=== PATIENT | male | born 1955 | race Caucasian/White ===

== ENCOUNTER 2023-08-09 08:10 | Emergency (ER) | payer MEDICARE, SELFPAY ==
[2023-08-09 08:25] VITALS: BP 134/78; PULSE 98; RESP 16; TEMP 36.7; O2SAT 97
--- NOTE | 2023-08-09 08:26 | ECG_ITS ---
Measurements Intervals [place] Rate: 108 P: [place]: 0 QRS: 25 QRSD: 133 T: 24 QT: 333 QTc: 446 Interpretive Statements PROBABLE ATRIAL FLUTTER WITH RAPID VENTRICULAR RESPONSE AND VARIABLE AV BLOCK RIGHT BUNDLE BRANCH BLOCK [120+ ms QRS DURATION, UPRIGHT V1, 40+ ms S IN I/aVL/V4/V5/V6] ABNORMAL ECG NO PREVIOUS ECG AVAILABLE FOR COMPARISON Electronically Signed On 08-09-2023 13:48:37 CDT by Vishal Arriaza M.D.
--- NOTE | 2023-08-09 08:28 | ED.GENADULT ---
HPI - General Adult General Chief complaint: Chest Pain Stated complaint: Chest pain Time Seen by Provider: 08/09/23 08:28 Source: patient and RN notes reviewed Mode of arrival: ambulatory Limitations: no limitations History of Present Illness HPI narrative: 67-year-old male presents to the [facility] with complaints of chest pain that started last night. Reports it being sternal the left-sided. States he thought it was just acid reflux after eating brisk it last night. Pain continued this morning at thought it was hunger pain so he went to the [employer] for breakfast. Comes to the [facility] with increase of pain, nausea, and states it is not getting any better. Patient has a history of hypertension, insomnia, acid reflux, prostate issues, diabetes, high cholesterol. Spoke with daughter, Yvonne, via phone, she states that he has no history of AFib. On arrival and monitor heart rate 110-140. Onset (ago): hour(s) (12-15) Related Data Home Medications Medication Instructions Recorded Confirmed atorvastatin 20 mg tablet 20 mg PO DAILY 08/09/23 08/09/23 clonidine 0.1 mg/24 hr weekly 0.1 mg transdermal WEEKLY 08/09/23 08/09/23 transdermal patch glipizide 10 mg tablet 10 mg PO DAILY 08/09/23 08/09/23 insulin glargine 100 unit/mL (3 See Rx Instructions .Route .COMPLEX 08/09/23 08/09/23 mL) subcutaneous pen (Lantus Solostar U-100 Insulin) linagliptin 5 mg tablet (Tradjenta) 5 mg PO DAILY 08/09/23 08/09/23 metoprolol tartrate 100 mg tablet 100 mg PO DAILY 08/09/23 08/09/23 omeprazole 40 mg capsule,delayed 40 mg PO DAILY 08/09/23 08/09/23 release spironolactone 25 mg tablet 25 mg PO DAILY 08/09/23 08/09/23 tamsulosin 0.4 mg capsule 0.4 mg PO DAILY 08/09/23 08/09/23 trazodone 100 mg tablet 100 mg PO DAILY 08/09/23 08/09/23 valsartan 320 1 tablet PO DAILY 08/09/23 08/09/23 mg-hydrochlorothiazide 25 mg tablet zolpidem 10 mg tablet 10 mg PO DAILY 08/09/23 08/09/23 Allergies Allergy/AdvReac Type Severity Reaction Status Date / Time No Known Allergies Allergy Verified 08/09/23 08:48 Review of Systems Review of Systems: All systems reviewed & are unremarkable except as noted in HPI and below Constitutional: Constitutional: Reports no additional constitutional complaints Eyes: Eyes: Reports no additional eye complaints ENT: Reports system reviewed and no additional complaints, except as documented Cardiovascular: Cardiovascular: Reports as per HPI, Reports chest pain, Reports chest pain at rest, Reports chest pain with activity, Denies diaphoresis, Reports rapid heart rate, Denies pedal edema, Denies leg edema and Denies dyspnea Respiratory: Respiratory: Reports no additional respiratory complaints, Denies chest congestion, Denies cough and Denies dyspnea Gastrointestinal: Gastrointestinal: Reports no additional gastrointestinal complaints, Denies abdominal pain, Reports nausea and Denies vomiting Musculoskeletal: Musculoskeletal: Reports no additional musculoskeletal complaints Integumentary/Breasts: Skin/Breast: Reports system reviewed and no additional complaints, except as docu Neurologic: Reports system reviewed and no additional complaints, except as documented Psychiatric: Psychiatric: Reports no additional psychiatric complaints Allergic/Immunologic: Allergic/Immunologic: Reports no additional allergic/immunologic complaints [facility] Past Medical History Medical History (Updated 08/09/23 @ 08:58 by Yvonne Laguna APRN) Diabetes Enlarged prostate H/O gastroesophageal reflux (GERD) High cholesterol History of high blood pressure Insomnia Social History Social History (Updated 08/09/23 @ 08:53 by Yvonne Laguna APRN) Gender identity (if verbalized by the patient): Male Comments At the time of my signature, I reviewed and agree with the nursing past medical, surgical, social, and family history. There is no relevant family history pertinent to the patient complaint. Exam Const: Gener
[2023-08-09] MEDS: ASPIRIN 81 MG CHEWABLE TABLET 324 MG PO (08:42)
== END 2023-08-09 08:38 | disposition short-term general hospital (02) ==
PROVIDERS: Emergency Provider Nurse Practitioner
DX: I48.91 Unspecified atrial fibrillation (principal); I45.10 Unspecified right bundle-branch block; I10 Essential (primary) hypertension; E11.9 Type 2 diabetes mellitus without complications; E78.00 Pure hypercholesterolemia, unspecified; N40.0 Benign prostatic hyperplasia without lower urinary tract symptoms; K21.9 Gastro-esophageal reflux disease without esophagitis
CPT/HCPCS: 93005; 99215; A9270; G0463

== ENCOUNTER 2023-08-09 09:11 | Inpatient (IN) | payer MEDICARE, SELFPAY ==
[2023-08-09] VITALS (13 sets, daily range): BP systolic 126–167; BP diastolic 62–112; PULSE 80–134; RESP 18–29; TEMP 36.7–38.1; O2SAT 95–100
--- NOTE | ~2023-08-09 | NM_ITS ---
EXAMINATION: NM janice stress w perfusion DATE: 08/10/2023 13:31 INDICATION: Chest pain. TECHNIQUE: Rest images were obtained following intravenous administration of 11 mCi Tc99m tetrofosmin (Myoview). The patient was infused intravenously with Lexiscan (regadenoson). Then, 31.8 mCi Tc99m t etrofosmin (Myoview) was administered intravenously, and stress images were obtained. Data was recons tructed into short axis and horizontal and vertical long axis SPECT images. Gated SPECT images were a lso obtained. COMPARISON: Chest CT 08/09/2023 FINDINGS: There is no definite reversible or fixed perfusion abnormality to suggest ischemia or infar ction. There is no segmental wall motion abnormality. Left ventricular ejection fraction measures > 70%. IMPRESSION: 1. No definite ischemia or infarct. 2. Normal left ventricular ejection fraction measuring > 70%. Reviewed, dictated and finalized at location E.
--- NOTE | ~2023-08-09 | XR_ITS ---
XR chest 1V portable DATE: 08/09/2023 10:19 INDICATION: Chest pain TECHNIQUE: Portable upright AP chest on 08/09/2023 at 1016 hours COMPARISON: None FINDINGS: Cardiomegaly. No pulmonary infiltrate or consolidation, pleural effusion, pulmonary vascula r congestion or pneumothorax is detected. Degenerative spurring of the thoracic spine. IMPRESSION: Cardiomegaly No active pulmonary disease Reviewed, dictated and finalized at location A.
--- NOTE | ~2023-08-09 | US_ITS ---
EXAMINATION: US renal BI DATE: 08/11/2023 10:16 INDICATION: Acute kidney injury. TECHNIQUE: Multiple ultrasound grayscale images of the kidneys were obtained. COMPARISON: CT abdomen and pelvis 08/09/2023 FINDINGS: The right kidney measures 13.9 x 5.4 x 7.8 cm. The left kidney measures 12.3 x 6.9 x 6.2 cm. The kidn eys demonstrate normal parenchymal echogenicity. There is no hydronephrosis. The bladder is normal. T here is diffuse hepatic steatosis. IMPRESSION: 1. Normal kidneys. No hydronephrosis. 2. Diffuse hepatic steatosis. Reviewed, dictated and finalized at location E.
--- NOTE | ~2023-08-09 | US_ITS ---
US abdomen limited DATE: 08/09/2023 13:23 INDICATION: Right upper quadrant abdominal pain, tenderness, elevated bilirubin TECHNIQUE: Real-time imaging and Doppler analysis COMPARISON: 08/09/2023 CTA chest abdomen pelvis FINDINGS: There is diffuse hepatic steatosis. No hepatic or pancreatic space-occupying mass lesion is detected. Normal hepatopedal portal venous flow direction. The common bile duct measures 4.5 mm, normal. No gallstones or gallbladder wall thickening or abnormal pericholecystic fluid collection. IMPRESSION: Hepatic steatosis Reviewed, dictated and finalized at Location A. Reviewed, dictated and finalized at location A. IMPRESSION: Hepatic steatosis
--- NOTE | ~2023-08-09 | CT_ITS ---
EXAMINATION: CTA chest PE abdomen pel DATE: 08/09/2023 10:38 INDICATION: Chest pain, right upper quadrant and epigastric abdominal pain TECHNIQUE: Computed tomography angiography (CTA) of the chest, abdomen and pelvis was performed with 200 mL Omnipaque-350 intravenous contrast timed to evaluate the pulmonary arteries. Coronal maximum i ntensity projection 3D-reconstructions were created by the technologist. Automated exposure control a nd iterative reconstruction technique were employed. Exam dose: 3350.64 mGy-cm total exam DLP. COMPARISON: 08/09/2023 portable AP chest 08/09/2023 and limited ultrasound examination is not available at this time FINDINGS: No central pulmonary embolism is evident. Evaluation of the peripheral pulmonary arteries i s limited due to motion. Cardiomegaly. No thoracic aortic aneurysm or dissection. No hilar or mediastinal mass lesion or lymphadenopathy. No pericardial or pleural effusion. No pulmonary infiltrate or consolidation or pulmonary mass lesion is evident. Small sliding hiatal hernia. Diffuse hepatic steatosis. No hepatic, splenic, pancreatic or significant adrenal space-occupying mas s lesion. The gallbladder is present. No gallbladder wall thickening or pericholecystic fluid or fat stranding. No bile duct or pancreatic duct dilatation. No renal mass lesion or urinary tract calculus or hydroureteronephrosis. There is prostatomegaly with prominent diffuse urinary bladder wall thickening. Bilateral vas deferen s calcifications are noted, usually associated with diabetes. Normal caliber of the abdominal aorta. No intraperitoneal or retroperitoneal or pelvic mass lesion or adenopathy or ascites is detected. No bowel obstruction or intraperitoneal free air. Normal appendix. Bilateral fat-containing inguinal hernias. Prominent degenerative disc disease in the lower cervical spine. Diffuse idiopathic skeletal hyperostosis of the thoracic spine. Prominent degenerative change at the lumbar apophyseal joints with associated grade 1 anterolisthesis at L4-5. Moderate degenerative disc disease of the lumbar spine. IMPRESSION: No thoracic or abdominal aortic aneurysm or dissection Cardiomegaly Small sliding hiatal hernia Hepatic steatosis Prostatomegaly Vas deferens calcifications, usually associated with diabetes Normal appendix Bilateral fat-containing inguinal hernias Reviewed, dictated and finalized at Location A. Reviewed, dictated and finalized at location A.
--- NOTE | 2023-08-09 09:13 | ECG_ITS ---
Measurements Intervals [place] Rate: 115 P: [place]: 0 QRS: 23 QRSD: 135 T: 17 QT: 324 QTc: 449 Interpretive Statements ATRIAL FLUTTER WITH RAPID VENTRICULAR RESPONSE AND VARIABLE AV BLOCK RIGHT BUNDLE BRANCH BLOCK [120+ ms QRS DURATION, UPRIGHT V1, 40+ ms S IN I/aVL/V4/V5/V6] ABNORMAL ECG COMPARED TO ECG 08/09/2023 08:36:06 NO SIGNIFICANT CHANGES Electronically Signed On 08-09-2023 13:49:21 CDT by Vishal Arriaza M.D.
[2023-08-09 09:34] LABS: Basophils Percent Auto 0.3 % (0.2-1.2); Eosinophils Absolute Auto 0.1 K/mm3 (0-0.3); Eosinophils Percent Auto 0.5 % (0-4.4); Hematocrit 43.1 % (42.0-52.0); Hemoglobin 14.6 g/dL (14.0-18.0); Immature Granulocyte Absolute 0.04 K/mm3 (0.00-0.031); Immature Granulocyte Percent A 0.4 % (0-0.5); Lymphocytes Absolute Auto 0.62 K/mm3 (0.9-3.2); Lymphocytes Percent Auto 6.3 % (18.3-44.2); Mean Corpuscular HGB Conc 33.9 g/dl (32-36); Mean Corpuscular Hemoglobin 29.4 pg (26-34); Mean Corpuscular Volume 86.9 fl (80-100); Mean Platelet Volume 9.1 fl (7.4-10.4); Monocytes Absolute Auto 0.8 K/mm3 (0.1-0.6); Monocytes Percent Auto 7.8 % (2.6-8.5); Neutrophils Absolute Auto 8.3 K/mm3 (1.3-6.7); Neutrophils Percent Auto 84.7 % (45.5-73.1); Platelet Count Result 170 k/mm3 (150-375); Red Blood Count 4.96 M/mm3 (4.6-6.20); Red Cell Distribution Width 13.3 % (11.5-14.5); White Blood Count 9.9 K/mm3 (4.5-10.0)
--- NOTE | 2023-08-09 09:37 | ED.CHESTPAIN ---
HPI - Chest Pain General Chief Complaint: Chest Pain <Rina Nichole PA-C - Last Filed: 08/09/23 15:01> Stated Complaint: CP/ AFIB <Rina Nichole PA-C - Last Filed: 08/09/23 15:01> History of Present Illness HPI narrative: 67-year-old male with a history of insulin-dependent diabetes, GERD, hyperlipidemia, hypertension reports for evaluation for sudden onset substernal chest pain that started around 1 to 2 AM this morning. Patient states the pain woke him up out of his sleep and he thought he was hungry. He states the pain persisted and while he was at [facility] this morning which prompted him to go to urgent care. He was found to be in new onset A-fib RVR and was sent to the emergency department. The patient states the chest pain resolved while he was at the urgent care. Upon my evaluation, he stated he is no longer having chest pain. He denies aggravating or alleviating factors. Denies palpitations, syncope, vision changes, focal numbness or weakness, lightheadedness, dyspnea, cough or congestion, fever, abdominal pain, nausea, vomiting, diarrhea. Patient states his blood glucose is normally in the 100s to 200s. <Rina Nichole PA-C - Last Filed: 08/09/23 15:01> Related Data Home Medications: Home Medications Medication Instructions Recorded Confirmed aspirin 81 mg capsule 81 mg PO HS 08/09/23 08/09/23 atorvastatin 20 mg tablet 20 mg PO HS 08/09/23 08/09/23 clonidine 0.1 mg/24 hr weekly 0.1 mg transdermal WEEKLY 08/09/23 08/09/23 transdermal patch glipizide 10 mg tablet 10 mg PO Q12H 08/09/23 08/09/23 insulin glargine 100 unit/mL (3 20 unit subcut DAILY 08/09/23 08/09/23 mL) subcutaneous pen (Lantus Solostar U-100 Insulin) linagliptin 5 mg tablet (Tradjenta) 5 mg PO DAILY 08/09/23 08/09/23 metoprolol tartrate 100 mg tablet 100 mg PO Q12H 08/09/23 08/09/23 omeprazole 40 mg capsule,delayed 40 mg PO DAILY 08/09/23 08/09/23 release spironolactone 25 mg tablet 25 mg PO Q12H 08/09/23 08/09/23 tamsulosin 0.4 mg capsule 0.4 mg PO DAILY 08/09/23 08/09/23 trazodone 100 mg tablet 150 mg PO HS 08/09/23 08/09/23 valsartan 320 1 tablet PO DAILY 08/09/23 08/09/23 mg-hydrochlorothiazide 25 mg tablet zolpidem 10 mg tablet 10 mg PO HS 08/09/23 08/09/23 <Rina Nichole PA-C - Last Filed: 08/09/23 15:01> Allergies/Adverse Reactions: Allergies Allergy/AdvReac Type Severity Reaction Status Date / Time No Known Allergies Allergy Verified 08/09/23 08:48 <Rina Nichole PA-C - Last Filed: 08/09/23 15:01> Review of Systems Review of Systems: CONSTITUTIONAL: Denies fever, chills EYES: Denies visual changes, redness, or discharge. ENT: Denies rhinorrhea, congestion, sore throat, or otalgia. CARDIOVASCULAR: See HPI RESPIRATORY: Denies cough or dyspnea. GASTROINTESTINAL: Denies abdominal pain, nausea, vomiting, or diarrhea. GENITOURINARY: Denies dysuria or hematuria. SKIN: Denies rash or itching. MUSCULOSKELETAL: Denies back pain, joint pain, or myalgia. NEUROLOGIC: Denies headache, numbness, dizziness, or weakness. PSYCHIATRIC: Denies anxiety or depression. <Rina Nichole PA-C - Last Filed: 08/09/23 15:01> [facility] Past Medical History Medical History: Medical History Diabetes Enlarged prostate H/O gastroesophageal reflux (GERD) High cholesterol History of high blood pressure Insomnia <Rina Nichole PA-C - Last Filed: 08/09/23 15:01> Family History Family History: Family History (Updated 08/09/23 @ 18:50 by Blanca Don RN) Father Colon cancer <Rina Nichole PA-C - Last Filed: 08/09/23 15:01> Social History Social History: Social History Smoking status: Former smoker Tobacco type: cigars Alcohol intake: never Substance use: never Substance use type: does not use Lack of Transportation: No Lack
[2023-08-09 09:38] LABS: INR 1.1; Prothrombin Time 14.2 Seconds (11.1-14.7)
[2023-08-09 09:39] LABS: Partial Thromboplastin Time 31.2 SECONDS (22.3-36.8)
[2023-08-09] MEDS: dilTIAZem HCl INJ 25 MG/5 ML VIAL 10 MG IV PUSH (09:42)
[2023-08-09 09:56] LABS: Appearance Urine Clear (Clear); Bacteria Urine None Seen /hpf; Bilirubin Urine Negative (Negative); Blood Urine Trace (Negative); Color Urine Yellow (Yellow); Glucose Urine UA 3+ mg/dL (Negative); Ketones Urine Trace mg/dL (Negative); Leukocyte Esterase Ur Negative LEU/UL (Negative); Nitrate Urine Negative (Negative); Non Pathogenic Casts 0-2; Protein Urine 3+ mg/dL (Negative); RBC Urine 0-2 /hpf (0-2); Specific Grav Ur 1.022 (1.001-1.035); Squamous Epithelial Cell Urine None seen /hpf (Few); WBC Urine 0-5 /hpf; pH Urine 5.5 (5.0-9.0)
[2023-08-09 09:56] LABS: Alanine Aminotransferase 95 U/L (6-50); Albumin Level 4.5 g/dL (3.5-5.1); Alkaline Phosphatase 104 U/L (38-126); Anion Gap 13 mmol/L (8-16); Aspartate Amino Transferase 169 U/L (17-59); Bilirubin,Total 3.2 mg/dL (0.2-1.3); Blood Urea Nitrogen 24 mg/dL (9-20); Calcium 9.6 mg/dL (8.4-10.2); Carbon Dioxide 22 mmol/L (22-30); Chloride 96 mmol/L (98-107); Estimated Glomerular Filt Rate 47; Glucose 324 mg/dL (65-110); Lipase 348 U/L (23-300); Potassium 4.2 mmol/L (3.4-5.0); Sodium 131 mmol/L (137-145)
[2023-08-09 10:02] LABS: Add Urine Microscopic? YES
[2023-08-09] MEDS: ALBUTEROL SULFATE NEB 2.5 MG/3 ML INH INHALATION (10:04)
[2023-08-09] MEDS: IPRATROPIUM BR 0.02% INH SOLN 0.5 MG/2.5 ML VIAL INHALATION (10:04)
[2023-08-09 10:05] LABS: Magnesium 1.6 mg/dL (1.6-2.3)
[2023-08-09 10:07] LABS: Troponin I < 0.012 ng/mL (0.000-0.034)
[2023-08-09 10:15] LABS: NT Pro B Type Natriuretic Pept 2570 pg/mL (19.9-100)
[2023-08-09] MEDS: dilTIAZem 100 MG/100 ML 100 MG/100 ML BAG IV CONT (10:40)
[2023-08-09] MEDS: ONDANSETRON INJ 4 MG/2 ML VIAL IV PUSH (10:41)
--- NOTE | 2023-08-09 12:06 | ECG_ITS ---
Measurements Intervals [place] Rate: 99 P: 44 [place]: 204 QRS: 10 QRSD: 134 T: 31 QT: 319 QTc: 410 Interpretive Statements PROBABLE ATRIAL FLUTTER WITH VARIABLE AV BLOCK MARKED BASELINE ARTIFACT RIGHT BUNDLE BRANCH BLOCK [120+ ms QRS DURATION, UPRIGHT V1, 40+ ms S IN I/aVL/V4/V5/V6] ABNORMAL ECG COMPARED TO ECG 08/09/2023 09:15:07 SINUS RHYTHM NOW PRESENT Electronically Signed On 08-09-2023 13:50:01 CDT by Vishal Arriaza M.D.
--- NOTE | 2023-08-09 12:11 | ECG_ITS ---
Measurements Intervals [place] Rate: 94 P: 25 [place]: 198 QRS: -2 QRSD: 130 T: 13 QT: 336 QTc: 421 Interpretive Statements SINUS RHYTHM RIGHT BUNDLE BRANCH BLOCK [120+ ms QRS DURATION, UPRIGHT V1, 40+ ms S IN I/aVL/V4/V5/V6] ABNORMAL ECG COMPARED TO ECG 08/09/2023 09:52:38 SINUS RHYTHM NOW PRESENT Electronically Signed On 08-10-2023 12:13:39 CDT by Tomas Pizano M.D.
[2023-08-09 12:13] LABS: Troponin I < 0.012 ng/mL (0.000-0.034)
[2023-08-09] MEDS: ENOXAPARIN 100 MG/ML SYRINGE SUB-Q (12:36)
[2023-08-09] MEDS: SODIUM CHLORIDE 0.9% IV 1,000 ML 999 ML IV CONT (12:36)
[2023-08-09 15:43] LABS: Glucose Point of Care 308 mg/dl (65-105)
[2023-08-09 15:47] LABS: Troponin I 0.017 ng/mL (0.000-0.034)
--- NOTE | 2023-08-09 15:47 | PM.IMHP ---
H&P: HPI History of Present Illness Date/Time: 08/09/23 14:45 Chief Complaint: Chest pain and rapid heart rate. Narrative: This is a 67-year-old male with insulin dependent type 2 diabetes mellitus, hypertension, hyperlipidemia, obstructive sleep apnea intolerant to CPAP, gastroesophageal reflux disease, benign prostatic hyperplasia, and insomnia who presented to the emergency department from urgent care for evaluation of chest pain and rapid heart rate. The patient provides the following history. He is from [place] however has been in the area for quite some time for work on the [employer]. He has been in his usual state of health as of late. At about 01:00 he was awakened from sleep with a pressure-like sensation in the substernal region which he initially attributed to indigestion or hunger. He was not able to sleep much through the rest of the night due to the pressure. This morning it was still there when he got up for the day and he went to urgent care. There he was found to be in a rapid atrial tachycardia and he was sent to the ED. His chest discomfort resolved by the time he arrived here. Initial EKG showed atrial flutter with rapid ventricular response and he was started on a diltiazem drip with improvement in his rates. Labs were significant for a sodium of 131, chloride 96, BUN 24, creatinine 1.50, glucose 324, total bilirubin 3.2, AST 169, ALT 95, creatinine kinase 284, proBNP 2570, lipase 348, troponin less than 0.012. He denies sensations of racing heart and palpitations. He denies feelings of shortness of breath however he does appear to get winded when walking back from the bathroom and crawling back up onto the gurney. He denies syncope, near syncope, exertional chest pain, cough, paroxysmal nocturnal dyspnea, edema, calf pain, nausea, vomiting, and sweats. He has no known history of cardiac dysrhythmia or cardiac disease. He denies significant alcohol and caffeine use. No history of thyroid disease or venous thromboembolism. He denies illicit substance use. Review of Systems Review of Systems: Twelve systems were reviewed. No recent cold or flu symptoms. He denies sick contacts. He has fallen out of favor of using his CPAP as it tends to keep him awake at night. He does have pretty significant insomnia. Reports glucose is typically in the 100 or 200s. No blurry vision, polydipsia, or polyuria. Except as documented, all other systems were reviewed and are negative. [facility] Past Medical History Medical History (Updated 08/09/23 @ 21:48 by Margo Nagel PA-C) Benign prostatic hyperplasia Gastroesophageal reflux disease Hyperlipidemia Hypertension Insomnia Insulin dependent type 2 diabetes mellitus Obstructive sleep apnea Intolerant to CPAP. Surgical History Surgical History (Updated 08/09/23 @ 21:44 by Margo Nagel PA-C) History of colonoscopy with polypectomy History of repair of left rotator cuff History of tonsillectomy Family History Family History Father Colon cancer Social History Social History (Updated 08/09/23 @ 21:45 by Margo Nagel PA-C) Social History: Surrogate medical decision maker: Malorie Emmanuel () or Yvonne Yusuf (daughter). Code status: Do not resuscitate. Smoking status: Former smoker Tobacco type: cigars Alcohol intake: current Alcohol use details: Social alcohol use in moderation. Substance use: never Substance use type: does not use Lack of Transportation: No Lack of Food: Never True Current Housing: I Have Housing Concerned About Future Housing: No Difficulty Paying Gas/Electric Bills: No Difficulty Paying for Meds: No Currently Unemployed: No Education: Don't Know Difficulty w/ Childcare or Family Care: No Additional living arrangements comments: The patient lives in [place] and is here for work. Spiritual care concerns: No Meds Home Medications and Allergies Home Medica
--- NOTE | 2023-08-09 17:06 | PC.NURSE ---
pt is A&Ox4. Pt ST with occasionl PVC. Denies SOB and chest pain.
--- NOTE | 2023-08-09 18:32 | ADMGEN ---
This patient, Shahab Emmanuel, was admitted to IMU Room 201-01 on 08/09/23 at 1755. Patient/family oriented to hospital policies and general routines including ID bracelet, bed and alarms, visiting hours, pain management, procedures, bathroom and other care routines, personal items, smoking policy, room service/diet, and visiting hours. Information on how to activate the Rapid Response Team has been discussed. Patient/Family are encouraged to report perceived risks to care and to ask questions if they do not understand what they are told or what they should do.
[2023-08-09 19:09] LABS: Creatine Kinase 284 U/L (55-170)
[2023-08-09 19:11] LABS: Hemoglobin A1C 9.4 % (<5.7)
[2023-08-09 19:12] LABS: Lactic Acid Reflex 2.6 mmol/L (0.7-2.0)
[2023-08-09 19:21] LABS: Troponin I 0.021 ng/mL (0.000-0.034)
[2023-08-09 19:41] LABS: Thyroid Stimulating Hormone Reflex 0.684 uIU/mL (0.465-4.68)
[2023-08-09 20:29] LABS: Hepatitis B Surface Antigen Negative (Negative)
[2023-08-09 20:34] LABS: HAV RESULT Negative (Negative); Hepatitis B Core IgM Result Negative (Negative)
[2023-08-09 20:46] LABS: Hepatitis C Virus Antibody Negative (Negative)
[2023-08-09 21:11] LABS: Glucose Point of Care 253 mg/dl (65-105)
[2023-08-09] MEDS: ZOLPIDEM TARTRATE (*CRX) 5 MG TABLET 10 MG PO (21:24)
[2023-08-09] MEDS: METOPROLOL TARTRATE 50 MG TAB 100 MG PO (21:25)
[2023-08-09] MEDS: traZODone HCL 50 MG TABLET 150 MG PO (21:25)
[2023-08-09] MEDS: SPIRONOLACTONE 25 MG TABLET PO (21:25)
[2023-08-09] MEDS: ATORVASTATIN 20 MG TABLET PO (21:25)
[2023-08-09] MEDS: glipiZIDE 5 MG TABLET 10 MG PO (21:30)
[2023-08-09 21:53] LABS: Reflex Lactic Acid Yes or No Add Lactic
[2023-08-09 22:47] LABS: Lactic Acid 2.6 mmol/L (0.7-2.0)
[2023-08-10] VITALS (15 sets, daily range): BP systolic 112–157; BP diastolic 47–82; PULSE 76–99; RESP 14–22; TEMP 36.4–37.5; O2SAT 91–97
--- NOTE | 2023-08-10 | ECHO_ITS ---
Patient Info Name: Shahab Emmanuel Age: 67 years : 1955 Gender: Male Ht: 72 in Wt: 220 lbs BSA: 2.27 m2 HR: 86 bpm BP: 112 / 47 mmHg Heart Rhythm: Sinus Rhythm Technical Quality: Good Exam Date: 08/10/2023 8:41 AM Exam Location: [facility] Patient Status: Inpatient Admit Date: 08/10/2023 Staff Ordering Physician: Margo Nagel PA-C Diver Tender: Kathi Perez RDCS Attending Provider: Jacinta Ayers MD Referring Physician: Shona VERMA; Exam Type: CA echo doppler color flow Study Info Indications - aflutter, htn, hyperlipidemia Complete two-dimensional, color flow and Doppler transthoracic echocardiogram is performed. Summary 1. Complete two-dimensional, color flow and Doppler transthoracic echocardiogram is performed. 2. Left ventricular chamber dimension is normal. 3. Left ventricular systolic function is normal, estimated at 60-65%. 4. There is mildly increased left ventricular wall thickness. 5. The left ventricular diastolic function is grade I diastolic dysfunction. 6. Left atrial chamber dimension is mildly enlarged. 7. There is mild mitral valve regurgitation. 8. There is mild tricuspid valve regurgitation. 9. Mild pulmonary hypertension, estimated pulmonary arterial systolic pressure is 41 mmHg. Left Ventricle Left ventricular chamber dimension is normal. Left ventricular systolic function is normal, estimated at 60-65%. There is mildly increased left ventricular wall thickness. The left ventricular diastolic function is grade I diastolic dysfunction. Right Ventricle Right ventricular chamber dimension is normal. Right ventricular systolic function is normal. Left Atria Left atrial chamber dimension is mildly enlarged. Right Atria Right atrial chamber dimension is normal. Atrial Septum Intact interatrial septum visualized by color flow imaging. Aortic Valve The aortic valve is trileaflet. There is mild aortic valve sclerosis. There is no aortic valve stenosis. There is trace aortic valve regurgitation. Pulmonic Valve The pulmonic valve is normal. There is no pulmonic valve stenosis. There is trace pulmonic regurgitation. Mitral Valve The mitral valve has normal leaflets. There is no mitral valve stenosis. There is mild mitral valve regurgitation. Tricuspid Valve The tricuspid valve leaflets are normal. There is no significant tricuspid valve stenosis. There is mild tricuspid valve regurgitation. Mild pulmonary hypertension, estimated pulmonary arterial systolic pressure is 41 mmHg. Pericardium/Pleural The pericardium appears normal. There is no pericardial effusion. Inferior Vena Cava Normal inferior vena cava with >50% collapse upon inspiration consistent with normal right atrial pressure, 10 mmHg. Aorta The aortic root size at the sinus of Valsalva is normal. The prox ascending aorta size is normal. Left Ventricular Outflow Tract Name Value Normal LVOT 2D LVOT Diameter 2.0 cm LVOT Doppler LVOT Peak Gradient 4 mmHg LVOT Mean Gradient 3 mmHg LVOT VTI 19 cm LVOT VTI/AV VTI Ratio 0.6 LVOT
[2023-08-10 01:01] LABS: Glucose Point of Care 209 mg/dl (65-105)
[2023-08-10 04:17] LABS: Hematocrit 36.1 % (42.0-52.0); Hemoglobin 12.3 g/dL (14.0-18.0); Mean Corpuscular HGB Conc 34.1 g/dl (32-36); Mean Corpuscular Hemoglobin 29.6 pg (26-34); Mean Platelet Volume 8.8 fl (7.4-10.4); Platelet Count Result 122 k/mm3 (150-375); Red Blood Count 4.15 M/mm3 (4.6-6.20); Red Cell Distribution Width 13.5 % (11.5-14.5); White Blood Count 8.8 K/mm3 (4.5-10.0)
[2023-08-10 04:19] LABS: Immature Platelet Fraction Pct 1.8 % (0.9-11.2)
[2023-08-10 04:32] LABS: Alanine Aminotransferase 334 U/L (6-50); Albumin Level 3.6 g/dL (3.5-5.1); Alkaline Phosphatase 157 U/L (38-126); Anion Gap 9 mmol/L (8-16); Aspartate Amino Transferase 276 U/L (17-59); Bilirubin,Total 4.6 mg/dL (0.2-1.3); Blood Urea Nitrogen 31 mg/dL (9-20); Calcium 8.5 mg/dL (8.4-10.2); Carbon Dioxide 23 mmol/L (22-30); Chloride 97 mmol/L (98-107); Creatine Kinase 502 U/L (55-170); Estimated Glomerular Filt Rate 30; Glucose 189 mg/dL (65-110); Magnesium 1.6 mg/dL (1.6-2.3); Potassium 3.7 mmol/L (3.4-5.0); Sodium 129 mmol/L (137-145)
[2023-08-10] MEDS: PANTOPRAZOLE 40 MG TABLET PO (09:30)
[2023-08-10] MEDS: METOPROLOL TARTRATE 50 MG TAB 100 MG PO ×2 (09:30→20:44)
[2023-08-10] MEDS: TAMSULOSIN HCL 0.4 MG CAPSULE PO (09:30)
[2023-08-10] MEDS: SPIRONOLACTONE 25 MG TABLET PO (09:30)
[2023-08-10] MEDS: hydroCHLOROthiazide 25 MG TABLET PO (09:30)
[2023-08-10] MEDS: VALSARTAN 160 MG TABLET 320 MG PO (09:30)
[2023-08-10] MEDS: INSULIN ASPART (*BKC) 100 UNITS/ML SUB-Q (09:31)
[2023-08-10] MEDS: ENOXAPARIN 100 MG/ML SYRINGE SUB-Q ×2 (09:31→20:42)
[2023-08-10] MEDS: INSULIN GLARGINE (*BKC) 100 UNITS/ML 20 UNITS SUB-Q (09:31)
[2023-08-10] MEDS: glipiZIDE 5 MG TABLET 10 MG PO (09:34)
--- NOTE | 2023-08-10 10:16 | PM.CNCAR ---
Assessment and Plan Assessment and plan (1) Obstructive sleep apnea: Code(s): G47.33 - Obstructive sleep apnea (adult) (pediatric) Status: Acute Assessment and Plan: Untreated. Should be initiated on CPAP therapy upon return to [place] (2) Hypertension: Code(s): I10 - Essential (primary) hypertension Status: Acute Assessment and Plan: Blood pressure is at goal (3) Atrial fibrillation with rapid ventricular response: Code(s): I48.91 - Unspecified atrial fibrillation Status: Acute Assessment and Plan: Acute onset of atrial fibrillation/flutter. Thyroid is normal. Magnesium is well and will give 2 g of IV magnesium x1. 2D echocardiogram Doppler be ordered and reviewed. He has a chads Vasc score of 3 and therefore anticoagulation is warranted. Will discontinue his aspirin and enoxaparin at this point start him on Xarelto 15 mg daily. Patient did have chest pain with his atrial fibrillation cannot exclude underlying CAD. Will keep NPO after midnight for Lexiscan perfusion study in the morning (4) Chest pain: Code(s): R07.9 - Chest pain, unspecified Status: Acute Assessment and Plan: Cannot exclude angina. Will perform a stress test tomorrow morning assuming he is still here given underlying renal insufficiency and elevated LFTs (5) Insulin dependent type 2 diabetes mellitus: Code(s): E11.9 - Type 2 diabetes mellitus without complications; Z79.4 - extermination supervisor (current) use of insulin Status: Acute Assessment and Plan: Per hospitalist History of Present Illness History of Present Illness Consult date/time: 08/10/23 10:16 Requesting physician: Rina Nichole PA-C Consult reason: atrial fibrillation Reason For Visit: New Onset A Fib/Chest Pain Narrative: Reason for admission: Atrial fibrillation, chest pain Date of service 08/10/2023 Requesting provider: Jennifer Nichole History: Patient is 67-year-old male from [place] who is here for work. He has seen cardiology in the past for hypertension. Does not have known coronary or rhythm problems he is aware of. He does have diabetes and hypertension. His untreated sleep apnea, hyperlipidemia. He came to the hospital because of chest pain. He woke up acutely with chest pain that is located in lower chest and upper abdominal area. It persisted he eventually came to urgent care where he was found to be in atrial fibrillation with rapid ventricular response. It did not radiate. It was described as being sharp in nature. He was nauseated upon arrival to urgent care. No associated shortness breath. He did not feel palpitations. He denies any similar episodes in the past. He was started on diltiazem and has since converted back to sinus rhythm. He denies any paroxysmal nocturnal dyspnea, orthopnea, edema, syncope or presyncope. Review of Systems Review of Systems: All systems reviewed & are unremarkable except as noted in HPI and below Constitutional: Constitutional: Denies body ache(s) Eyes: Eyes: Denies blurry vision ENT: Reports Normal hearing present Cardiovascular: Cardiovascular: Reports chest pain Respiratory: Respiratory: Denies chest congestion Gastrointestinal: Gastrointestinal: Denies abdominal pain Genitourinary: Genitourinary: Denies hematuria Musculoskeletal: Musculoskeletal: Denies back pain Integumentary/Breasts: Skin/Breast: Denies dry skin Neurologic: Denies Abnormal speech present Psychiatric: Psychiatric: Denies anxiety Endocrine: Endocrine: Denies excessive sweating Hematologic/Lymphatic: Hematologic/Lymphatic: Denies easy bleeding Allergic/Immunologic: Allergic/Immunologic: Denies GI upset with certain foods PMFSH Past Medical History Medical History Benign prostatic hyperplasia Gastroesophageal reflux disease Hyperlipidemia Hypertension Insomnia Insulin dependent type 2 di
[2023-08-10 10:26] LABS: Glucose Point of Care 226 mg/dl (65-105)
--- NOTE | 2023-08-10 10:28 | EST_ITS ---
Patient Info Name: Shahab Emmanuel Age: 67 years : 1955 Gender: Male Ht: 72 in Wt: 220 lbs BSA: 2.27 m2 HR: 88 bpm BP: 153 / 89 mmHg Heart Rhythm: Sinus Rhythm Exam Date: 08/10/2023 12:30 PM Exam Location: [facility] Patient Status: Inpatient Admit Date: 08/10/2023 Staff Ordering Physician: Tomas Pizano MD Attending Provider: Jacinta Ayers MD Exercise Technologist: Lexie Poon CT Exam Type: CA stress janice w NM Study Info Indications R07.89 - Other chest pain A regadenoson stress test was performed. Summary 1. Normal sinus rhythm with right bundle branch block. 2. No ST or T-wave abnormalities consistent with ischemia. 3. Clinically and electrocardiographically uneventful Lexiscan stress test. 4. Myocardial perfusion imaging study to be dictated by Radiology. Protocol: Lexiscan Stress ECG Details Stage: REST Duration (min): 0 min : 59 sec HR (bpm): 87 SBP (mmHg): 153 DBP (mmHg): 89 Stage: REST Duration (min): 19 min : 0 sec HR (bpm): 87 SBP (mmHg): 153 DBP (mmHg): 89 Stage: STAGE 1 Duration (min): 1 min : 0 sec HR (bpm): 91 SBP (mmHg): 149 DBP (mmHg): 87 Stage: RECOVERY Duration (min): 1 min : 0 sec HR (bpm): 95 SBP (mmHg): 149 DBP (mmHg): 87 Stage: RECOVERY Duration (min): 2 min : 0 sec HR (bpm): 95 SBP (mmHg): 149 DBP (mmHg): 87 Stage: RECOVERY Duration (min): 3 min : 0 sec HR (bpm): 94 SBP (mmHg): 145 DBP (mmHg): 82 Stage: RECOVERY Duration (min): 3 min : 17 sec HR (bpm): 93 SBP (mmHg): 145 DBP (mmHg): 82 Rest HR: 87 bpm Peak HR: 96 bpm Rest Sys BP: 153 mmHg Peak Sys BP: 149 mmHg Max Pred HR: 152 bpm % Max Pred HR: 63 % Target HR: 129 bpm Max RPP: 14,304 bpm*mmHg Termination Reason: Completed protocol Cardiac Symptoms: None Total Time: 1 min : 0 sec Rest Veloz BP: 89 mmHg Peak Veloz BP: 87 mmHg Total Dose: 0.4 mg Resting ECG Normal sinus rhythm with right bundle branch block. Stress ECG No ST or T-wave abnormalities consistent with ischemia. Report Signatures
[2023-08-10] MEDS: MAGNESIUM SULF 2 GM/WATER 50ML 2 GM/50 ML BAG IVPB (10:37)
--- NOTE | 2023-08-10 11:55 | PC.NURSE ---
Pt to nuclear medicine via wheelchair.
--- NOTE | 2023-08-10 13:29 | PC.NURSE ---
Pt returned from nuclear medicine via wheelchair with no issues noted
--- NOTE | 2023-08-10 14:46 | PM.IMPN ---
Progress Note: A&P Assessment and Plan (1) Renal insufficiency: Code(s): N28.9 - Disorder of kidney and ureter, unspecified Status: Acute (2) Transaminitis: Code(s): R74.01 - Elevation of levels of liver transaminase levels Status: Acute (3) Atrial flutter with rapid ventricular response: Code(s): I48.92 - Unspecified atrial flutter Status: Acute (4) Obstructive sleep apnea: Code(s): G47.33 - Obstructive sleep apnea (adult) (pediatric) Status: Acute (5) Benign prostatic hyperplasia: Code(s): N40.0 - Benign prostatic hyperplasia without lower urinary tract symptoms Status: Acute (6) Hyperlipidemia: Code(s): E78.5 - Hyperlipidemia, unspecified Status: Acute (7) Hypertension: Code(s): I10 - Essential (primary) hypertension Status: Acute (8) Gastroesophageal reflux disease: Code(s): K21.9 - Gastro-esophageal reflux disease without esophagitis Status: Acute (9) Insulin dependent type 2 diabetes mellitus: Code(s): E11.9 - Type 2 diabetes mellitus without complications; 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 He has 4 days left. night of admission he awoke from sleep with pressure like sensation in substernal region and then could not sleep. Upon eval at urgent care he was found to be in a fib w/ RVR then sent to [facility]. He has since been weaned off of diltiazem and also spontaneously converted to sinus rhythm. 1) a fib w/ RVR - new diagnosis. on lovenox 100mg BID, switch to DOAC per cardiology recs. cont tele monitor and cont his home dosing metoprolol 100mg po bid. dilt GTT has been weaned off and he spontaneously converted - echo with grade 1 diastolic dysfunction. TSH wnl - stress test without evidence of ischemia. aspirin discontinued 2) BRADLEY on probable CKD - no baseline to compare, he does have protein and glucose in urine so likely CKD given his age, HTN, and DM. - presented with sCR 1.50, now 2.2. consult nephrology. no evidence of hydroureteronephrosis on CT scan. likely 2/2 to ischemia due to rapid a fib. has diastolic dysfunction and crackles at bases so gently hydrate with 50ml NS /hr 3) hyponatremia - stable, consult nephrology 4) transaminitis and hyperbilirubinemia - CTA chestabd pelvis and abdominal US without gallbladder disease, evidence of hepatic steatosis. cont to trend, unclear if a fib caused shock liver 5) lactic acidosis - due to above. mild at 2.5. recheck 6) LEONARDO - counseled on use of CPAP, CPAP at night 7) GERD - d/c protonix. hold for now, both pepcid and protonix can cause hepatitis and interstitial nephritis 8) HTN - ctm, hold spironolactone, hold valsartan HCTZ 9) IDDM - accuchecks and sliding scale - hold tradjenta and glipizide 2/2 decreased GFR More than 35 minutes spent on chart review, patient interaction and assessment and plan. Subjective Date/time seen: 08/10/23 14:46 Interval history: NAOE. pt denies complaints. he rests comfortably in bed. Review of Systems Review of Systems: All systems reviewed & are unremarkable except as noted in HPI and below Exam Const: General: comfortable and no acute distress Eyes: Pupils: Equal, round and reactive pupils present Resp: Effort & Inspection: normal respiratory effort Auscultation: crackles (bibasilar, moderate) Cardio: Rate: regular rate Rhythm: regular rhythm Heart sounds: no gallops, no murmurs and no rubs GI: Inspection: distended GI Palp: Yes Soft to palpation and No Tenderness to palpation present (GI) Auscultation: normal bowel sounds Other: large abdominal pannus Extrem: General: no edema Objective Data Vital Signs Vital Signs: Vital Signs - 24 hr 08/09/23 15:15 08/09/23 17:15 08/09/23 20:00 Temperature 99.1 F Pul
[2023-08-10] MEDS: SODIUM CHLORIDE 0.9% IV 1,000 ML 50 ML IV CONT (15:18)
[2023-08-10 16:12] LABS: Lactic Acid Reflex 1.2 mmol/L (0.7-2.0)
--- NOTE | 2023-08-10 17:18 | PC.NURSE ---
This patient, Shahab Emmanuel , was transferred to [[facility] ] on 08/10/23 at 0365. Personal belongings sent with patient. Report given to [SOHAN Gomez @ [phone] ]. Appropriate documentation sent with patient.
--- NOTE | 2023-08-10 17:30 | PM.CNNEP ---
Assessment and Plan Assessment and plan (1) Renal insufficiency: Code(s): N28.9 - Disorder of kidney and ureter, unspecified Status: Acute Assessment and Plan: acute versus acute on chronic?? baseline creatinine not known/clear has risk factors for CKD -- HTN, DM, hyperlipidemia, and LEONARDO possible etiology: recent contrast exposure (NEWTON) concurrent diuretic use (HCTZ + spironolactone) concurrent ARB use prerenal factors(?) recent Afib with RVR check renal ultrasound and urine studies as well as CPK follow trend of repeat labs and UOP (2) Atrial fibrillation with rapid ventricular response: Code(s): I48.91 - Unspecified atrial fibrillation Status: Acute Assessment and Plan: acute onset rate control strategy Cardiology following started on anticoagulation etiology of chest pain(?) follow-up on Echo (3) Chest pain: Code(s): R07.9 - Chest pain, unspecified Status: Acute Assessment and Plan: possibly related to #2 stress test done earlier today (4) Obstructive sleep apnea: Code(s): G47.33 - Obstructive sleep apnea (adult) (pediatric) Status: Chronic Assessment and Plan: not being treated resume/initiated CPAP therapy when able (5) Hypertension: Code(s): I10 - Essential (primary) hypertension Status: Chronic Assessment and Plan: reasonable control at this time follow trend of hemodynamics (6) Insulin dependent type 2 diabetes mellitus: Code(s): E11.9 - Type 2 diabetes mellitus without complications; Z79.4 - MCFP (current) use of insulin Status: Chronic Assessment and Plan: follow accu-cheks glyceminc control per hospitalists I will continue to follow the patient with you while he remains hospitalized and make further recommendations as needed. Thank you for allowing me to participate care this patient. 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 He has been in his usual state of health as of late until about 1:00 a.m. on the day of admission when was awakened from sleep with a pressure-like sensation in the substernal chest area which initially thought was just indigestion or on her pains. Unfortunately, following this event, he was unable to sleep much throughout the night and continue to have this chest pressure sensation. When he woke up this morning, his sensation was still present so he went to an urgent care center. initial evaluation in the urgent care center demonstrated rapid atrial tachycardia by EKG he was subsequently transferred to the emergency room. By time of his arrival to the emergency room, he had no longer had any chest discomfort. His initial EKG showed atrial flutter with rapid ventricular response and he was subsequently initiated on a diltiazem drip with improvement in his heart rate. Routine blood tests were done which showed mild hyponatremia and elevated BUN and creatinine, hyperglycemia, and mild elevation of his LFTs in association with an elevated proBNP. His CPK was mildly elevated to 84 with a lipase of 348 and a troponin less than 0.012. He gave no symptoms of heart palpitations and denies any shortness of breath although he did report that he has noticed some sensation of being winded walking around the room. Given his laboratory findings and symptoms on presentation, he was subsequently admitted to the hospital for further ev
--- NOTE | 2023-08-10 17:43 | PC.NURSE ---
This patient, Shahab Vargas Lien Spann, was received from IMU on 08/10/23 at 1743. Patient/family oriented to unit policies and routines
[2023-08-10 18:49] LABS: Glucose Point of Care 196 mg/dl (65-105)
[2023-08-10 18:49] LABS: Glucose Point of Care 215 mg/dl (65-105)
[2023-08-10] MEDS: ATORVASTATIN 20 MG TABLET PO (20:43)
[2023-08-10] MEDS: traZODone HCL 50 MG TABLET 150 MG PO (20:43)
[2023-08-10] MEDS: ZOLPIDEM TARTRATE (*CRX) 5 MG TABLET 10 MG PO (20:44)
[2023-08-10 21:26] LABS: Glucose Point of Care 169 mg/dl (65-105)
[2023-08-11] VITALS: PULSE 84
[2023-08-11 04:00] VITALS: PULSE 106
[2023-08-11 08:00] VITALS: PULSE 94
[2023-08-11 08:02] LABS: Glucose Point of Care 148 mg/dl (65-105)
[2023-08-11 08:13] VITALS: PULSE 92
[2023-08-11] MEDS: METOPROLOL TARTRATE 50 MG TAB 100 MG PO (08:13)
[2023-08-11] MEDS: TAMSULOSIN HCL 0.4 MG CAPSULE PO (08:13)
[2023-08-11] MEDS: ENOXAPARIN 100 MG/ML SYRINGE SUB-Q (08:13)
[2023-08-11] MEDS: INSULIN GLARGINE (*BKC) 100 UNITS/ML 20 UNITS SUB-Q (08:15)
[2023-08-11 08:35] VITALS: PULSE 92; RESP 14; O2SAT 91
[2023-08-11 08:53] LABS: Alanine Aminotransferase 214 U/L (6-50); Albumin Level 3.9 g/dL (3.5-5.1); Alkaline Phosphatase 166 U/L (38-126); Anion Gap 9 mmol/L (8-16); Aspartate Amino Transferase 103 U/L (17-59); Blood Urea Nitrogen 34 mg/dL (9-20); Calcium 8.6 mg/dL (8.4-10.2); Carbon Dioxide 23 mmol/L (22-30); Chloride 98 mmol/L (98-107); Creatine Kinase 317 U/L (55-170); Estimated Glomerular Filt Rate 28; Glucose 146 mg/dL (65-110); Magnesium 2.4 mg/dL (1.6-2.3); Potassium 3.6 mmol/L (3.4-5.0); Sodium 130 mmol/L (137-145)
[2023-08-11 08:56] LABS: Lactic Acid Reflex 0.9 mmol/L (0.7-2.0)
[2023-08-11 09:16] LABS: Hematocrit 37.8 % (42.0-52.0); Hemoglobin 12.8 g/dL (14.0-18.0); Immature Platelet Fraction Pct 2.5 % (0.9-11.2); Mean Corpuscular HGB Conc 33.9 g/dl (32-36); Mean Corpuscular Volume 88.7 fl (80-100); Mean Platelet Volume 9.3 fl (7.4-10.4); Platelet Count Result 144 k/mm3 (150-375); Red Blood Count 4.26 M/mm3 (4.6-6.20); Red Cell Distribution Width 13.4 % (11.5-14.5); White Blood Count 7.2 K/mm3 (4.5-10.0)
--- NOTE | 2023-08-11 10:20 | PM.PNNEP ---
Progress Note: A&P Assessment and Plan (1) Renal insufficiency: Code(s): N28.9 - Disorder of kidney and ureter, unspecified Status: Acute Assessment and Plan: acute versus acute on chronic?? baseline creatinine not known/clear has risk factors for CKD -- HTN, DM, hyperlipidemia, and LEONARDO possible etiology: recent contrast exposure (NEWTON) concurrent diuretic use (HCTZ + spironolactone) concurrent ARB use prerenal factors(?) recent Afib with RVR evaluation to date: renal ultrasound okay urine electrolytes look prerenal urine eosinophils negative moderate proteinuria CPK mildly elevated - not enougn to affect renal function follow trend of repeat labs and UOP (2) Atrial fibrillation with rapid ventricular response: Code(s): I48.91 - Unspecified atrial fibrillation Status: Acute Assessment and Plan: acute onset rate control strategy Cardiology following on anticoagulation etiology of chest pain(?) Echo results noted (3) Chest pain: Code(s): R07.9 - Chest pain, unspecified Status: Acute Assessment and Plan: possibly related to #2 stress test results noted (4) Obstructive sleep apnea: Code(s): G47.33 - Obstructive sleep apnea (adult) (pediatric) Status: Chronic Assessment and Plan: not being treated resume/initiated CPAP therapy when able (5) Hypertension: Code(s): I10 - Essential (primary) hypertension Status: Chronic Assessment and Plan: reasonable control at this time follow trend of hemodynamics (6) Insulin dependent type 2 diabetes mellitus: Code(s): E11.9 - Type 2 diabetes mellitus without complications; Z79.4 - termite technician (current) use of insulin Status: Chronic Assessment and Plan: follow accu-cheks glyceminc control per hospitalists Will continue to follow. Subjective Date/time seen: 08/11/23 10:20 Interval history: Follow-up for acute kidney injury/acute renal failure. No apparent distress noted; renal function about the same as yesterday; no apparent distress voiced; tells me that he is ready to go with regard to leaving the hospital -- I did tell him it would be prudent to make sure his kidney function is improving before discharge but not sure he is willing to wait. Exam Narrative: General: WD/WN male in NAD Heart: normal S1 and S2; no rub Lungs: clear to auscultation Abdomen: soft, nontender, nondistended, positive bowel sounds Extremities: no cyanosis or clubbing; no edema Skin: warm and dry Objective Data Vital Signs Vital Signs: Vital Signs Temp Pulse Resp BP Pulse Ox O2 Del Method 08/11/23 08:00 94 08/11/23 08:35 92 14 91 Room Air 08/11/23 08:13 92 08/11/23 04:00 106 H 08/11/23 00:00 84 08/10/23 20:00 90 08/10/23 23:24 99.5 F 90 14 154/82 H 91 08/10/23 20:44 92 08/10/23 18:05 98.0 F 87 20 157/80 H 95 08/10/23 16:00 91 08/10/23 16:00 99.5 F 95 20 153/77 H 94 08/10/23 14:00 93 08/10/23 12:00 78 Intake/Output Intake/Output: Intake & Output 08/08/23 08/09/23 08/10/23 08/11/23 23:59 23:59 23:59 23:59 Intake Total 1000 290 750 Output Total 300 Balance 1000 290 450 Meds/Results Medications: Active Medications Generic Name Dose Route Start Last Admin Trade Name Freq PRN Reason Stop Dose Admin Acetaminophen 650 mg 08/09/23 22:02 Acetaminophen 325 Mg Tablet PO Q6H PRN Mild Pain (1-3) or Fever Atorvastatin Calcium 20 mg 08/09/23 21:00 08/10/23 20:43 Atorvastatin 20 Mg Tablet PO 20 mg HS TIARA Administration Clonidine HCl 1 patch 08/16/23 09:00 Clonidine 0.1 Mg/24 Hr Patch TRANSDERM WEEKLY TIARA Dextrose 12.5 gm 08/09/23 22:02 Dextrose 50% 25 Gm/50 Ml Syringe IV PUSH PRN PRN Hypoglycemia Protocol Enoxaparin Sodium 100 mg 1
--- NOTE | 2023-08-11 10:20 | P.PNNP_ITS ---
Progress Note: A&P Assessment and Plan (1) Renal insufficiency: Code(s): N28.9 - Disorder of kidney and ureter, unspecified Status: Acute Assessment and Plan: * acute versus acute on chronic?? * baseline creatinine not known/clear * has risk factors for CKD -- HTN, DM, hyperlipidemia, and LEONARDO * possible etiology: * recent contrast exposure (NEWTON) * concurrent diuretic use (HCTZ + spironolactone) * concurrent ARB use * prerenal factors(?) * recent Afib with RVR * evaluation to date: * renal ultrasound okay * urine electrolytes look prerenal * urine eosinophils negative * moderate proteinuria * CPK mildly elevated - not enougn to affect renal function * follow trend of repeat labs and UOP (2) Atrial fibrillation with rapid ventricular response: Code(s): I48.91 - Unspecified atrial fibrillation Status: Acute Assessment and Plan: * acute onset * rate control strategy * Cardiology following * on anticoagulation * etiology of chest pain(?) * Echo results noted (3) Chest pain: Code(s): R07.9 - Chest pain, unspecified Status: Acute Assessment and Plan: * possibly related to #2 * stress test results noted (4) Obstructive sleep apnea: Code(s): G47.33 - Obstructive sleep apnea (adult) (pediatric) Status: Chronic Assessment and Plan: * not being treated * resume/initiated CPAP therapy when able (5) Hypertension: Code(s): I10 - Essential (primary) hypertension Status: Chronic Assessment and Plan: * reasonable control at this time * follow trend of hemodynamics (6) Insulin dependent type 2 diabetes mellitus: Code(s): E11.9 - Type 2 diabetes mellitus without complications; Z79.4 - termite technician (current) use of insulin Status: Chronic Assessment and Plan: * follow accu-cheks * glyceminc control per hospitalists Will continue to follow. Subjective Date/time seen: 08/11/23 10:20 Interval history: Follow-up for acute kidney injury/acute renal failure. No apparent distress noted; renal function about the same as yesterday; no apparent distress voiced; tells me that he is ready to go with regard to leaving the hospital -- I did tell him it would be prudent to make sure his kidney function is improving before discharge but not sure he is willing to wait. Exam Narrative: General: WD/WN male in NAD Heart: normal S1 and S2; no rub Lungs: clear to auscultation Abdomen: soft, nontender, nondistended, positive bowel sounds Extremities: no cyanosis or clubbing; no edema Skin: warm and dry Objective Data Vital Signs Vital Signs: Vital Signs Temp Pulse Resp BP Pulse Ox O2 Del Method 08/11/23 08:00 94 08/11/23 08:35 92 14 91 Room Air 08/11/23 08:13 92 08/11/23 04:00 106 H 08/11/23 00:00 84 08/10/23 20:00 90 08/10/23 23:24 99.5 F 90 14 154/82 H 91 08/10/23 20:44 92 08/10/23 18:05 98.0 F 87 20 157/80 H 95 08/10/23 16:00 91 08/10/23 16:00 99.5 F 95 20 153/77 H 94 08/10/23 14:00 93 08/10/23 12:00 78 Intake/Output Intake/Output: Intake & Output
[2023-08-11 12:14] LABS: Glucose Point of Care 154 mg/dl (65-105)
[2023-08-11 12:31] LABS: Creatinine Urine 123.1 mg/dL; Sodium Urine Random 64 meq/L; Urea Random Urine 750 MG/DL
[2023-08-11 12:41] LABS: Total Protein Urine Random 296 mg/dL
[2023-08-11 14:02] LABS: Eosinophil Urine None Seen % (None Seen); Urine Eos QC 2nd Tech Confirmed
--- NOTE | 2023-08-11 14:05 | PM.DS ---
DS: Admitting Diagnosis Discharge Date 08/13/2023 Admitting Diagnosis Chest pain and rapid heart rate. DS: Discharge Diagnosis Discharge Diagnosis (1) Renal insufficiency: Code(s): N28.9 - Disorder of kidney and ureter, unspecified Status: Acute (2) Transaminitis: Code(s): R74.01 - Elevation of levels of liver transaminase levels Status: Acute (3) Atrial flutter with rapid ventricular response: Code(s): I48.92 - Unspecified atrial flutter Status: Acute (4) Obstructive sleep apnea: Code(s): G47.33 - Obstructive sleep apnea (adult) (pediatric) Status: Acute (5) Benign prostatic hyperplasia: Code(s): N40.0 - Benign prostatic hyperplasia without lower urinary tract symptoms Status: Acute (6) Hyperlipidemia: Code(s): E78.5 - Hyperlipidemia, unspecified Status: Acute (7) Hypertension: Code(s): I10 - Essential (primary) hypertension Status: Acute (8) Gastroesophageal reflux disease: Code(s): K21.9 - Gastro-esophageal reflux disease without esophagitis Status: Acute (9) Insulin dependent type 2 diabetes mellitus: Code(s): E11.9 - Type 2 diabetes mellitus without complications; Z79.4 - termite control representative (current) use of insulin Status: Acute Plan . 1) a fib w/ RVR - new diagnosis. on lovenox 100mg BID, switch to DOAC per cardiology recs. cont tele monitor and cont his home dosing metoprolol 100mg po bid. dilt GTT has been weaned off and he spontaneously converted - echo with grade 1 diastolic dysfunction. TSH wnl - stress test without evidence of ischemia. aspirin discontinued 2) BRADLEY on probable CKD - no baseline to compare, he does have protein and glucose in urine so likely CKD given his age, HTN, and DM. - presented with sCR 1.50, now 2.2. consult nephrology. no evidence of hydroureteronephrosis on CT scan. likely 2/2 to ischemia due to rapid a fib. has diastolic dysfunction, kidney function improvedwith fluids 3) hyponatremia - stable, consult nephrology 4) transaminitis and hyperbilirubinemia - CTA chestabd pelvis and abdominal US without gallbladder disease, evidence of hepatic steatosis. cont to trend, unclear if a fib caused shock liver 5) lactic acidosis - resolved 6) LEONARDO - counseled on use of CPAP, CPAP at night 7) GERD - d/c protonix. 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 He has 4 days left. night of admission he awoke from sleep with pressure like sensation in substernal region and then could not sleep. Upon eval at urgent care he was found to be in a fib w/ RVR then sent to [place] [facility]. He has since been weaned off of diltiazem and also spontaneously converted to sinus rhythm Time Spent with Patient Time attestation: Total time spent providing and/or coordinating discharge services: Exam Narrative: General: WD/WN male in NAD Heart: normal S1 and S2; no rub Lungs: clear to auscultation Abdomen: soft, nontender, nondistended, positive bowel sounds Extremities: no cyanosis or clubbing; no edema Skin: warm and dry Const: General: comfortable and no acute distress Resp: Effort & Inspection: normal respiratory effort Auscultation: crackles (bibasilar, moderate) Cardio: Rate: regular rate Rhythm: regular rhythm Heart sounds: no gallops, no murmurs and no rubs GI: Inspection: distended Auscultation: normal bowel sounds Other: large abdominal pannus Neuro: Cranial nerves: Yes Equal, round and reactive pupils present Extrem: General: no edema DS: Data Data Completed and Pending Labs on day of discharge: Labs from last 24 hours 10
== END 2023-08-11 14:40 | disposition home or self-care (01) | DRG 309 ==
LOC: ANHED 14:59 → ANHIMU 17:30 → ANH3MEDSUR 08-10 17:38
PROVIDERS: Internal Medicine Nephrology; Physician Assistant; Admitting Provider General Practice; Emergency Provider Physician Assistant; Visit Provider Family Medicine
DX: I48.91 Unspecified atrial fibrillation (principal); E87.1 Hypo-osmolality and hyponatremia; N17.9 Acute kidney failure, unspecified; I48.92 Unspecified atrial flutter; E78.5 Hyperlipidemia, unspecified; E80.6 Other disorders of bilirubin metabolism; E11.22 Type 2 diabetes mellitus with diabetic chronic kidney disease; G47.33 Obstructive sleep apnea (adult) (pediatric); G47.00 Insomnia, unspecified; I12.9 Hypertensive chronic kidney disease with stage 1 through stage 4 chronic kidney disease, or unspecified chronic kidney disease; K21.9 Gastro-esophageal reflux disease without esophagitis; R07.9 Chest pain, unspecified; R74.01 Elevation of levels of liver transaminase levels; N40.0 Benign prostatic hyperplasia without lower urinary tract symptoms; N18.9 Chronic kidney disease, unspecified; Z79.4 Long term (current) use of insulin; Z91.199 Patient's noncompliance with other medical treatment and regimen due to unspecified reason; Z66 Do not resuscitate; Z79.82 Long term (current) use of aspirin; Z79.84 Long term (current) use of oral hypoglycemic drugs; Z87.891 Personal history of nicotine dependence
CPT/HCPCS: 36415; 71045; 71275; 74177; 76705; 76775; 78452; 80053; 80074; 81001; 81050; 82550; 82570; 82948; 83036; 83605; 83690; 83735; 83880; 84156; 84300; 84443; 84484; 84540; 85025; 85027; 85055; 85610; 85730; 85999; 93005; 93017; 93306; 94640; 96361; 96366; 96372; 96374; 96375; 99285; A9270; A9502; G0378; J1650; J1815; J2405; J2785; J3475; J7030; Q9967